=== PATIENT | male | born 1960 | race Caucasian/White ===

== ENCOUNTER → 2021-06-21 08:42 | Outpatient (CLI) | payer OTHER, SELFPAY ==
[2021-06-21 13:51] LABS: COVID19 -Nasal RAPID Negative (Negative)
== END ==
PROVIDERS: PCP Family Medicine; Referring Provider Nurse Practitioner Family; Visit Provider Nurse Practitioner Family
DX: Z20.822 Contact with and (suspected) exposure to COVID-19 (principal)
CPT/HCPCS: 87635

== ENCOUNTER 2021-06-23 12:39 | Day surgery (SDC) | payer OTHER, SELFPAY ==
--- NOTE | 2021-06-23 12:11 | PM.PREOP ---
Pre-operative Note COVID-19 COVID-19 status: Negative Interval Note History & Physical reviewed/Exam performed by Physician: Yes Changes to H&P: No ASA Class (for procedural sedation): II
--- NOTE | 2021-06-23 12:12 | PM.OP.COLON ---
Operative Date/Time/Diagnoses Date of procedure: 06/23/21 Procedure Notes SCOAP/Timeout: 1:50 p.m. Procedure in detail: ENDOSCOPIST: Yeni Bullock MD Sedation RN: Natalia Zimmerman RN Sedation start time: 1:51 p.m. Sedation end time: 2:09 p.m. PROCEDURE: Colonoscopy INDICATIONS: 1. History of colon polyps 2. Screening for colon cancer MEDICATION: Levsin 0.125 mg sublingual, incremental doses of Versed and fentanyl until appropriate level of sedation achieved. ASA CLASS: 2 CECAL WITHDRAWAL TIME: 8 minutes COMPLICATIONS: None. EXTENT OF PROCEDURE: Cecum. QUALITY OF PREP: Good with portions of liquid stool. PROCEDURE: Prior to insertion of the colonoscope, a digital rectal examination was accomplished with circumferential palpation of the distal rectal mucosa without significant findings being noted. The high-definition colonoscope was passed into the rectum in the usual fashion and advanced over to the cecum without difficulty. The ileocecal valve, appendiceal stoma, and medial wall all could be inspected and no abnormalities were seen. ASCENDING COLON: As the colonoscope was withdrawn, care was taken to expose and inspect the haustral folds and no abnormalities were seen. HEPATIC FLEXURE: Normal, no polyps, diverticula or other abnormalities. TRANSVERSE COLON: Normal, no polyps, diverticula or other abnormalities. DESCENDING COLON: Normal, no polyps, diverticula or other abnormalities. SIGMOID COLON: Normal, no polyps, diverticula or other abnormalities. RECTUM: Normal. J maneuver was produced. There was no significant perianal disease. The J maneuver was broken. The remainder of the rectum was inspected and there was no external hemorrhoid disease. The scope was withdrawn. IMPRESSION: 1. Normal colonoscopy PLAN: 1. Secondary to history of polyps, repeat colonoscopy in 5 years. The possibility of a missed lesion including a malignancy has been discussed with the patient previously. Potential alarm symptoms have been discussed and should be reported immediately.
[2021-06-23] MEDS: HYOSCYAMINE 0.125 MG TABLET PO (13:14)
[2021-06-23] MEDS: LACTATED RINGERS 1,000 ML 200 ML IV (13:15)
[2021-06-23 13:16] VITALS: BP 155/94; PULSE 71; RESP 16; TEMP 36.6; O2SAT 98; BMI 36.0
[2021-06-23] MEDS: fentaNYL 250 MCG/5 ML INJ IV (13:55)
[2021-06-23] MEDS: MIDAZOLAM 5 MG/5 ML VIAL IV (13:58)
[2021-06-23 14:13] VITALS: BP 129/80; PULSE 73; RESP 92; TEMP 36.8; O2SAT 10
[2021-06-23 14:18] VITALS: BP 135/82; PULSE 80; RESP 14; O2SAT 93
[2021-06-23 14:23] VITALS: BP 139/92; PULSE 69; RESP 12; O2SAT 93
[2021-06-23 14:26] VITALS: BP 137/89; PULSE 85; RESP 12; TEMP 36.8; O2SAT 93
[2021-06-23 14:30] VITALS: BP 131/88; PULSE 66; RESP 12; TEMP 36.8; O2SAT 93
== END 2021-06-23 14:40 | disposition home or self-care (01) ==
PROVIDERS: PCP Family Medicine; Referring Provider Student in an Organized Health Care Education/Training Program; Visit Provider Student in an Organized Health Care Education/Training Program
PROC: 0DJD8ZZ Inspection of Lower Intestinal Tract, Via Natural or Artificial Opening Endoscopic (ICD-10-PCS; CPT 45378; principal; 2021-06-23 13:45)
DX: Z12.11 Encounter for screening for malignant neoplasm of colon (principal); Z86.010 Personal history of colon polyps; E78.5 Hyperlipidemia, unspecified; I10 Essential (primary) hypertension
CPT/HCPCS: G0105; J2250; J3010

== ENCOUNTER → 2021-11-29 17:12 | Outpatient (CLI) | payer OTHER, SELFPAY ==
--- NOTE | 2021-11-29 17:16 | DI.MRI.S_ITS ---
PROCEDURE: MR KNEE LT WO CON INDICATIONS: Lt knee pain TECHNIQUE: Noncontrast sagittal PD fast spin echo and T2 fast spin echo with fat saturation, sagittal 3-D FLASH with fat saturation; coronal T1 spin echo and PD fast spin echo with fat saturation, and axial PD fast spin echo with fat saturation through the knee. COMPARISON: None. FINDINGS: Image quality: Excellent. Menisci: Surfacing signal in the posterior horn, medial meniscus, compatible with complex tear. The lateral meniscus is intact. Cruciate ligaments: The anterior and posterior cruciate ligaments appear intact. Medial structures: The medial collateral ligament appears intact Visualized portions of the pes anserinus tendons appear normal. No abnormal bursal fluid. Lateral structures: The lateral collateral ligament complex is intact. The popliteus tendon appears normal. Iliotibial band appears normal. Anterior structures: The quadriceps and patellar tendons appear intact. Patellar alignment is normal. No femoral trochlear dysplasia or ventral trochlear prominence. Minimal edema in the superior aspect of the infrapatellar fat. Bones and cartilage: No bone marrow contusions or fractures. Signal heterogeneity with fissuring in the medial femoral condyle and patellar hyaline cartilage. Joint space: Small to moderate knee joint fluid. Trace fluid in the popliteal fossa. Normal appearing synovial plicae are incidentally noted. Diffuse reticulated T2 hyperintense signal in the subcutaneous fat, compatible with edema. IMPRESSION: 1. Complex tear in the posterior horn, medial meniscus. 2. Minimal edema in the superior aspect of the infrapatellar fat. 3. Small to moderate joint effusion. 4. Diffuse soft tissue edema. Dictated by: Pritesh Velarde M.D. on 11/30/2021 at 10:16 Approved by: Pritesh Velarde M.D. on 11/30/2021 at 10:20
== END ==
PROVIDERS: PCP Family Medicine; Referring Provider Orthopaedic Surgery; Visit Provider Orthopaedic Surgery
DX: M25.562 Pain in left knee (principal); S83.242A Other tear of medial meniscus, current injury, left knee, initial encounter; M25.462 Effusion, left knee; R60.0 Localized edema
CPT/HCPCS: 73721

== ENCOUNTER → 2024-09-18 10:46 | Outpatient (CLI) | payer OTHER, SELFPAY ==
--- NOTE | 2024-09-18 10:47 | DI.MRI.S_ITS ---
PROCEDURE: MR PELIS WO/W CON INDICATIONS: Elevated prostate specific antigen [PSA] TECHNIQUE: Coronal HASTE, axial T1 FSE with fat saturation, 3-plane nonbreath-hold T2 FSE. After the administration of contrast, dynamic axial, delayed axial and coronal VIBE or 2-D FLASH with fat saturation through the pelvis. Diffusion weighted imaging and ADC was performed. COMPARISON: None. FINDINGS: Image quality: Diffusion weighted and dynamic contrast enhanced images are diagnostic. Prostate: Gland size is 5.9 x 4.3 x 4.7 cm; ellipsoid gland volume is 62 mL. Lesion 1: Location: Right lateral peripheral zone at a mid gland to apex level, on axial series five, image 15 and coronal series six, image 13. Size: 1.1 cm. Transverse diameter. T2W signal: Mildly hypointense, slightly heterogeneous DWI signal: Markedly hyperintense. ADC signal: Markedly hypointense. Enhancement: Yes Extracapsular extension: No PI-RADS score: Four Genitourinary system: Homogeneous T1 hyperintensity is seen throughout the left seminal vesicles. Bladder wall thickness is normal. Distal ureters are non distended. Bowel and peritoneum: No pathologic free pelvic fluid. Inferior colon and small bowel loops are normal in caliber. Nodes and vessels: No pelvic or inguinal adenopathy by size criteria. Iliac vessels are normal in caliber. Soft tissues: No inguinal hernias. Bones: Marrow demonstrates normal overall signal, without lesions to suggest metastases. IMPRESSION: A single small PI-RADS four lesion is present in the right prostate. Mildly enlarged prostate gland. No pelvic lymphadenopathy by size criteria. No aggressive osseous abnormality. Dictated by: Gayle Sherwood M.D. on 09/18/2024 at 14:27 Approved by: Gayle Sherwood M.D. on 09/18/2024 at 15:11
== END ==
PROVIDERS: PCP Family Medicine; Referring Provider Urology; Visit Provider Urology
DX: N40.0 Benign prostatic hyperplasia without lower urinary tract symptoms (principal); N42.9 Disorder of prostate, unspecified; R97.20 Elevated prostate specific antigen [PSA]
CPT/HCPCS: 72197; A9579

== ENCOUNTER → 2025-06-17 07:10 | Outpatient (CLI) | payer MEDICARE, SELFPAY ==
[2025-06-17 09:16] LABS: Prostate Specific Antigen 5.65 ng/mL (0.10-4.00)
== END ==
PROVIDERS: Urology; PCP Family Medicine; Referring Provider Family Medicine; Visit Provider Family Medicine
DX: C61 Malignant neoplasm of prostate (principal)
CPT/HCPCS: 36415; 84153